=== PATIENT | female | born 1980 | race Caucasian/White ===

== ENCOUNTER → 2018-08-04 | Outpatient (CLI) | payer BC | LOC: LAB 10:44 | PROVIDERS: ATTEND Nurse Practitioner | DX: N97.0 Female infertility associated with anovulation (principal) ==

== ENCOUNTER → 2018-09-04 | Outpatient (CLI) | payer BC | LOC: LAB 12:56 | PROVIDERS: ATTEND Nurse Practitioner | DX: N97.0 Female infertility associated with anovulation (principal) | CPT/HCPCS: 36415; 84144 ==

== ENCOUNTER → 2021-11-14 | Outpatient (CLI) | payer OTHER | LOC: LAB FS 07:17 | DX: E55.9 Vitamin D deficiency, unspecified (principal); E66.9 Obesity, unspecified; Z86.39 Personal history of other endocrine, nutritional and metabolic disease | CPT/HCPCS: 36415; 80061; 82306; 83036; 84443; 84681 ==

== ENCOUNTER → 2022-06-07 | Outpatient (CLI) | payer OTHER ==
[~2022-06-07] MED LIST: IRON DEXTRAN 1,000 MG/NS 250 ML IVPB IV ONE; IRON DEXTRAN 25 MG/NS 6.25 ML TOTAL VOLUME IV ONE
[2022-06-07 08:35] VITALS: BP 119/83
== END ==
LOC: SDC 08:19
PROVIDERS: ATTEND Nurse Practitioner
DX: D50.9 Iron deficiency anemia, unspecified (principal)
CPT/HCPCS: 96365

== ENCOUNTER → 2022-11-14 | Outpatient (CLI) | payer OTHER | LOC: LAB FS 10:19 | PROVIDERS: ATTEND Obstetrics & Gynecology | DX: N83.209 Unspecified ovarian cyst, unspecified side (principal); R19.09 Other intra-abdominal and pelvic swelling, mass and lump | CPT/HCPCS: 36415; 86304 ==

== ENCOUNTER → 2023-02-06 | Outpatient (CLI) | payer OTHER ==
[2023-02-06 08:42] LABS: CREATININE SERUM 0.73 MG/DL (0.60-1.30); POTASSIUM 4.1 MMOL/L (3.6-5.0)
[2023-02-06 08:43] LABS: BILIRUBIN,TOTAL 0.4 MG/DL (0.1-1.0); CALCIUM 9.2 MG/DL (8.5-10.1); TOTAL PROTEIN 6.5 GM/DL (6.4-8.2)
== END ==
LOC: LAB FS 07:27
PROVIDERS: ATTEND Registered Nurse
DX: I10 Essential (primary) hypertension (principal)
CPT/HCPCS: 36415; 80053; 80061; 82728; 83036; 83525

== ENCOUNTER 2023-03-15 01:11 | Inpatient (IN) | payer OTHER ==
[~2023-03-15] VITALS: Ht 162.6 cm; Wt 65.8 kg
[2023-03-15 01:43] LABS: BASOPHILS % (AUTO) 1 % (0-10); EOSINOPHILS # (AUTO) 0.2 10^3/uL (0.0-0.3); EOSINOPHILS % (AUTO) 2 % (0-10); HEMATOCRIT 43 % (35-52); HEMOGLOBIN 14.4 g/dL (11.5-16.0); LYMPHOCYTES # (AUTO) 3.2 10^3/uL (1.0-4.0); LYMPHOCYTES % (AUTO) 45 % (12-44); MEAN CORPUSCULAR HEMOGLOBIN 29 pg (25-34); MEAN CORPUSCULAR HGB CONC 34 g/dL (32-36); MEAN CORPUSCULAR VOLUME 86 fL (80-99); MEAN PLATELET VOLUME 10.2 fL (9.0-12.2); MONOCYTES # (AUTO) 0.4 10^3/uL (0.0-1.0); MONOCYTES % (AUTO) 6 % (0-12); NEUTROPHILS # (AUTO) 3.2 10^3/uL (1.8-7.8); NEUTROPHILS % (AUTO) 46 % (42-75); PLATELET COUNT 251 10^3/uL (130-400)
[2023-03-15 01:48] LABS: ALBUMIN 4.6 GM/DL (3.2-4.5); CHLORIDE 104 MMOL/L (98-107); POTASSIUM 3.6 MMOL/L (3.6-5.0); SODIUM 140 MMOL/L (135-145)
[2023-03-15 01:49] LABS: AMYLASE 72 U/L (25-125); CALCIUM 9.9 MG/DL (8.5-10.1)
[2023-03-15 01:50] LABS: GLUCOSE 90 MG/DL (70-105); TOTAL PROTEIN 7.6 GM/DL (6.4-8.2)
[2023-03-15 01:51] LABS: CARBON DIOXIDE 25 MMOL/L (21-32)
[2023-03-15 01:52] LABS: BILIRUBIN,TOTAL 0.6 MG/DL (0.1-1.0)
[2023-03-15 01:54] LABS: ALKALINE PHOSPHATASE 82 U/L (40-136); CREATININE SERUM 0.82 MG/DL (0.60-1.30); GFR ESTIMATED 90
[2023-03-15 01:55] LABS: BUN/CREATININE RATIO 20
[2023-03-15 01:57] LABS: ALANINE AMINOTRANSFERASE 29 U/L (0-55); LIPASE 24 U/L (8-78)
[2023-03-15] MEDS ORDERED: KETOROLAC 30 MG/ML VIAL IVP STA (02:01)
[2023-03-15 02:11] LABS: ERYTHROCYTE SEDIMENTATION RATE 5 MM/HR (0-20)
[2023-03-15] MEDS ORDERED: LACTATED RINGERS 1,000 ML IV ONE (02:15)
[2023-03-15] MEDS ORDERED: ONDANSETRON 4 MG/2 ML (SDV) Z0FRAN IVP ONE (02:15)
[2023-03-15 02:33] LABS: BILIRUBIN,URINE NEGATIVE (NEGATIVE); CLARITY,URINE CLEAR; COLOR,URINE YELLOW; GLUCOSE, URINE (UA) NEGATIVE (NEGATIVE); KETONES,URINE NEGATIVE (NEGATIVE); LEUKOCYTE ESTERASE ,URINE NEGATIVE (NEGATIVE); NITRITE,URINE NEGATIVE (NEGATIVE); PROTEIN,URINE NEGATIVE (NEGATIVE)
[2023-03-15] MEDS ORDERED: HOLD METFORMIN - RECEIVED CONTRAST 20 ML VIAL IV SCH (02:45)
[2023-03-15] MEDS ORDERED: CATHETER FLUSH 10 ML SYR IV PRN (02:45)
[2023-03-15] MEDS ORDERED: NS 100 ML (IVPB) BAG IV ONE (02:45)
[2023-03-15] MEDS ORDERED: IOHEXOL 350 MG/ML 100 ML (OMNIPAQUE 350) VIAL IV ONE (02:45)
[2023-03-15 02:47] LABS: BACTERIA,URINE NEGATIVE /HPF
[2023-03-15] MEDS ORDERED: fentaNYL INJ 100 MCG/2 ML AMP IVP STA (03:17)
[2023-03-15 04:53] VITALS: BP 151/90
[2023-03-15] MEDS ORDERED: ONDANSETRON 4 MG/2 ML (SDV) Z0FRAN IVP PRN (05:30)
[2023-03-15] MEDS ORDERED: fentaNYL INJ 100 MCG/2 ML AMP IVP PRN (05:30)
[2023-03-15] MEDS ORDERED: D5 1/2NS + KCL 20 MEQ/L 1000ML 1,000 ML IV SCH (05:30)
[2023-03-15] MEDS: ONDANSETRON 4 MG/2 ML (SDV) Z0FRAN IV PRN ×3 (05:49→20:28)
[2023-03-15] MEDS: fentaNYL INJ 100 MCG/2 ML AMP IV PRN ×5 (05:49→20:28)
[2023-03-15] MEDS: D5 1/2NS + KCL 20 MEQ/L 1000ML 1,000 ML IV SCH ×4 (05:49→21:44)
[2023-03-15 05:57] LABS: BASOPHILS % (AUTO) 0 % (0-10); EOSINOPHILS # (AUTO) 0.1 10^3/uL (0.0-0.3); EOSINOPHILS % (AUTO) 1 % (0-10); HEMATOCRIT 37 % (35-52); HEMOGLOBIN 12.5 g/dL (11.5-16.0); LYMPHOCYTES # (AUTO) 2.1 10^3/uL (1.0-4.0); LYMPHOCYTES % (AUTO) 27 % (12-44); MEAN CORPUSCULAR HEMOGLOBIN 29 pg (25-34); MEAN CORPUSCULAR HGB CONC 34 g/dL (32-36); MEAN CORPUSCULAR VOLUME 86 fL (80-99); MEAN PLATELET VOLUME 10.4 fL (9.0-12.2); MONOCYTES # (AUTO) 0.5 10^3/uL (0.0-1.0); MONOCYTES % (AUTO) 6 % (0-12); NEUTROPHILS # (AUTO) 5.3 10^3/uL (1.8-7.8); NEUTROPHILS % (AUTO) 66 % (42-75); PLATELET COUNT 196 10^3/uL (130-400); WHITE BLOOD COUNT 8.1 10^3/uL (4.3-11.0)
[2023-03-15 06:05] LABS: ALBUMIN 3.9 GM/DL (3.2-4.5); POTASSIUM 3.7 MMOL/L (3.6-5.0)
[2023-03-15 06:06] LABS: CALCIUM 8.8 MG/DL (8.5-10.1)
[2023-03-15 06:08] LABS: TOTAL PROTEIN 6.3 GM/DL (6.4-8.2)
[2023-03-15 06:09] LABS: BILIRUBIN,TOTAL 0.6 MG/DL (0.1-1.0)
[2023-03-15 06:11] LABS: CREATININE SERUM 0.76 MG/DL (0.60-1.30)
--- NOTE | 2023-03-15 07:30 | Diagnostic Imaging Report ---
PROCEDURE: CT abdomen and pelvis with contrast, rule out appendicitis. TECHNIQUE: Multiple contiguous axial images were obtained through the abdomen and pelvis after the administration of intravenous contrast. All CT scans use one or more of the following dose optimizing techniques: automated exposure control, MA and/or KvP adjustment based on patient size and exam type or iterative reconstruction. INDICATION: Right lower quadrant abdominal pain Lung bases are clear. Liver appears normal. Gallbladder surgically absent. There are postoperative changes from gastric bypass surgery. Proximal small bowel loops are markedly dilated measuring up to 4.6 cm in diameter. The distal small bowel is decompressed. Colon is unremarkable. Kidneys and adrenals are normal. Pancreas is normal. There is no intraperitoneal free air. There is a small amount of free fluid in the cul-de-sac. There is an IUD in the uterus. Urinary bladder appears normal. IMPRESSION: Mid to distal high-grade small bowel obstruction. Postoperative changes from gastric bypass surgery and cholecystectomy. I agree with preliminary interpretation. Dictated by: Dictated on workstation # [id number]
[2023-03-15 08:07] VITALS: BP 144/85
[2023-03-15] MEDS: PANTOPRAZOLE 40 MG (PROTONIX) VIAL IV SCH (08:54)
[2023-03-15] MEDS ORDERED: PANTOPRAZOLE 40 MG (PROTONIX) VIAL IV SCH (09:00)
--- NOTE | 2023-03-15 09:53 | Consultation - Surgery ---
History of Present Illness History of Present Illness Patient Consulted On(marguerite/time) 03/15/23 09:52 Date Seen by Provider: Mar 15, 2023 Time Seen by Provider: 09:53 History of Present Illness 42 year old female with history of gastric bypass. Had in 2016 and lost about 145 pounds. Has been doing well. Was eating chicken yesterday. Having abdominal pain and nausea and emesis. Crampy type pain. After emesis stomach feeling a little better. Yesterday last bowel movement. Patient Had ct scan with Mid to distal high-grade small bowel obstruction. Postoperative changes from gastric bypass surgery and cholecystectomy. Allergies and Home Medications Allergies Coded Allergies: Penicillins (Verified Allergy, Unknown, 06/07/22) TOLD CHILD NOT TO TAKE IT, BUT DOES NO KNOW REACTION. HAS TAKEN AUGMENTIN IN PAST Patient Home Medication List Home Medication List Reviewed: Yes Bupropion HCl (Bupropion HCl) 100 Mg Tablet, 200 MG PO DAILY, (Reported) Entered as Reported by: KT DODSON on 03/15/231307 Last Action: Reviewed Cholecalciferol (Vitamin D3) (Vitamin D3) 50 Mcg (2000 Unit) Tablet, 50 MCG PO DAILY, (Reported) Entered as Reported by: KT DODSON on 03/15/231307 Last Action: Reviewed Magnesium Oxide (Magnesium) 400 Mg Magnesium Tablet, 400 MG PO DAILY, (Reported) Entered as Reported by: KT DODSON on 03/15/231307 Last Action: Reviewed Multivitamin (Multivitamin) 1 Each Tablet, 1 EACH PO DAILY, (Reported) Entered as Reported by: KT DODSON on 03/15/231307 Last Action: Reviewed Nifedipine (Nifedipine ER) 60 Mg Tab.er.24, 60 MG PO DAILY, (Reported) Entered as Reported by: KT DODSON on 03/15/231307 Last Action: Reviewed Trazodone HCl (Trazodone HCl) 50 Mg Tablet, 50 MG PO HS PRN for SLEEP, (Reported) Entered as Reported by: KT DODSON on 03/15/231307 Last Action: Reviewed cycloSPORINE (cycloSPORINE) 0.05 % [place]pe[place], 1 DROP OU BID, (Reported) Entered as Reported by: KT DODSON on 03/15/231307 Last Action: Reviewed Past Bofbfso-Ftptoe-Umxuew Hx Patient Social History Smoking Status: Never a Smoker Alcohol Use?: No Surgeries History of Surgeries: Yes (gastric bypass) Respiratory History of Respiratory Disorde: No Cardiovascular History of Cardiac Disorders: No Neurological History of Neurological Disord: No Genitourinary History of Genitourinary Disor: No Gastrointestinal History of Gastrointestinal Di: No Musculoskeletal History of Musculoskeletal Dis: No Endocrine History of Endocrine Disorders: No Cancer History of Cancer: No Psychosocial History of Psychiatric Problem: No Reviewed Nursing Assessment Reviewed/Agree w Nursing PMH: Yes Family Medical History Significant Family History: No Pertinent Family Hx Review of Systems-General Constitutional: No chills, No diaphoresis EENTM: No blurred vision, No double vision Respiratory: No cough, No dyspnea on exertion Cardiovascular: No chest pain, No palpitations Gastrointestinal: abdominal pain, nausea, vomiting Genitourinary: No decreased output, No discharge Musculoskeletal: No back pain, No joint pain Skin: No change in color, No change in hair/nails Psychiatric/Neurological: Denies Anxiety, Denies Depressed, Denies Emotional Problems All Other Systems Reviewed Negative Unless Noted: Yes (Negative excepted noted.) Physical Exam-General Problems Physical Exam Vital Signs Vital Signs - First Documented 03/15/23 01:20 Temp 36.3 Pulse 87 Resp 18 B/P (MAP) 147/95 (112) Pulse Ox 99 O2 Delivery Room Air Capillary Refill : Less Than 3 Seconds General Appearance: no apparent distress (but uncomfortable), thin HEENT: PERRL/EOMI, normal ENT inspection Neck: non-tender, supple Respiratory: chest non-tender Cardiovascular: regular rate, rhythm, no JVD Gastrointestinal: soft, tenderness (lower abdomen) Rectal: deferred Back: no CVA tenderness, no vertebral tenderness Extremities: non-tender, normal inspection Neurologic/Psychiatric: alert, normal mood/affect, oriented x 3 Skin: normal color, warm/dry Lymphatic: no adenopathy Data Review Labs Laboratory Tests 03/15/23 01:26: White Blood Count 7.0, Red Blood Count 4.93, Hemoglobin 14.4, Hematocrit 43, Mean Corpuscular Volume 86, Mean Corpuscular Hemoglobin 29, Mean Corpuscular Hemoglobin Concent 34, Red Cell Distribution Width 12.6, Platelet Count 251, Mean Platelet Volume 10.2, Immature Granulocyte % (Auto) 0, Neutrophils (%) (Auto) 46, Lymphocytes (%) (Auto) 45H, Monocytes (%) (Auto) 6, Eosinophils (%) (Auto) 2, Basophils (%) (Auto) 1, Neutrophils # (Auto) 3.2, Lymphocytes # (Auto) 3.2, Monocytes # (Auto) 0.4, Eosinophils # (Auto) 0.2, Basophils # (Auto) 0.0, Immature Granulocyte # (Auto) 0.0, Erythrocyte Sedimentation Rate 5, Sodium Level 140, Potassium Level 3.6, Chloride Level 104, Carbon Dioxide Level 25, Anion Gap 11, Blood Urea Nitrogen 16, Creatinine 0.82, Estimat Glomerular Filtration Rate 90, BUN/Creatinine Ratio 20, Glucose Level 90, Calcium Level 9.9, Corrected Calcium , Total Bilirubin 0.6, Aspartate Amino Transf (AST/SGOT) 21, Alanine Aminotransferase (ALT/SGPT) 29, Alkaline Phosphatase 82, C-Reactive Protein High Sensitivity 0.02, Total Protein 7.6, Albumin 4.6H, Amylase Level 72, Lipase 24, Serum Test, Qualitative NEGATIVE 03/15/23 02:26: Urine Color YELLOW, Urine Clarity CLEAR, Urine pH 7.0, Urine Specific [place] 1. 010L, Urine Protein NEGATIVE, Urine Glucose (UA) NEGATIVE, Urine Ketones NEGATIVE, Urine Nitrite NEGATIVE, Urine Bilirubin NEGATIVE, Urine Urobilinogen 0.2, Urine Leukocyte Esterase NEGATIVE, Urine RBC (Auto) NEGATIVE, Urine RBC NONE, Urine WBC NONE, Urine Crystals NONE, Urine Bacteria NEGATIVE, Urine Casts NONE, Urine Mucus NEGATIVE, Urine Culture Indicated NO 03/15/23 05:50: White Blood Count 8.1, Red Blood Count 4.28, Hemoglobin 12.5, Hematocrit 37, Mean Corpuscular Volume 86, Mean Corpuscular Hemoglobin 29, Mean Corpuscular Hemoglobin Concent 34, Red Cell Distribution Width 12.5, Platelet Count 196, Mean Platelet Volume 10.4, Immature Granulocyte % (Auto) 0, Neutrophils (%) (Auto) 66, Lymphocytes (%) (Auto) 27, Monocytes (%) (Auto) 6, Eosinophils (%) (Auto) 1, Basophils (%) (Auto) 0, Neutrophils # (Auto) 5.3, Lymphocytes # (Auto) 2.1, Monocytes # (Auto) 0.5, Eosinophils # (Auto) 0.1, Basophils # (Auto) 0.0, Immature Granulocyte # (Auto) 0.0, Sodium Level 138, Potassium Level 3.7, Chloride Level 105, Carbon Dioxide Level 26, Anion Gap 7, Blood Urea Nitrogen 14, Creatinine 0.76, Estimat Glomerular Filtration Rate 99, BUN/Creatinine Ratio 18, Glucose Level 84, Calcium Level 8.8, Corrected Calcium 8.9, Total Bilirubin 0.6, Aspartate Amino Transf (AST/SGOT) 17, Alanine Aminotransferase (ALT/SGPT) 23, Alkaline Phosphatase 70, Total Protein 6.3L, Albumin 3.9 Assessment/Plan Assessment/Plan Assessment/Plan small bowel obstruction history of gastric bypass npo place ng tube reviewed ct scan consistent with sbo get small bowel follow through in am labs normal discussed conservative and operative management will continue with conservative and if changes or depending on results of small bowel follow through will adjust plan accordingly. EDVIN AMADO DO Mar 15, 2023 09:53
--- NOTE | 2023-03-15 11:42 | Diagnostic Imaging Report ---
EXAMINATION: Chest, one view. HISTORY: NG tube placement. Small bowel obstruction. COMPARISON: None available. FINDINGS: Enteric tube is visualized with the tip descending below the diaphragm overlying the stomach. The lung volumes are normal. No focal consolidation is seen. No large pleural effusion or pneumothorax is seen. The cardiomediastinal silhouette is normal in size and contour. No acute osseous abnormality is seen. IMPRESSION: 1. No acute pleural-parenchymal process. 2. Enteric tube with the tip overlying the stomach. Dictated by: Dictated on workstation # [id number]
[2023-03-15 11:52] VITALS: BP 149/109
[2023-03-15] MEDS ORDERED: LORazepam INJ 2 MG/ML (ATIVAN) VIAL IVP NR (12:00)
[2023-03-15] MEDS ORDERED: BUPR100T15 PO (13:08)
[2023-03-15] MEDS ORDERED: NIFE-24 PO (13:08)
[2023-03-15] MEDS ORDERED: TRZ50T PO (13:08)
[2023-03-15] MEDS ORDERED: MULT-1136 PO (13:08)
[2023-03-15] MEDS ORDERED: CYCL1DRO18 OU (13:08)
[2023-03-15] MEDS ORDERED: MAGN400T39 PO (13:08)
[2023-03-15] MEDS ORDERED: CHOL200059 PO (13:08)
--- NOTE | 2023-03-15 14:28 | History & Physical ---
History of Present Illness HPI/Chief Complaint CC: Abdominal pain HPI: This is a 42yoWF clinic patient of [facility] who presented to the ER with abdominal pain and was found to have an SBO. She does have a h/o gastric bypass 2016 and has never had an SBO. NGT was placed and will provide supportive care and NPO. BP has been elevated so will monitor closely. Source: patient Date Seen 03/15/23 Time Seen by a Provider: 16:00 Attending Physician No,Local Physician PCP Admitting Physician: Chris Payne DO Attending Physician: Chris Payne DO Referring Physician Date of Admission Mar 15, 2023 at 04:40 Home Medications & Allergies Home Medications Reviewed patient Home Medication Reconciliation performed by pharmacy medication reconciliations furniture repair technician and/or nursing. Patients Allergies have been reviewed. Allergies Allergies Coded Allergies Penicillins (Verified Allergy, Unknown, 06/07/22) TOLD CHILD NOT TO TAKE IT, BUT DOES NO KNOW REACTION. HAS TAKEN AUGMENTIN IN PAST Past Ohzkfrx-Lukmym-Tvtbzq Hx Past Med/Social Hx: Reviewed Nursing Past Med/Soc Hx, Reviewed and Corrections made Patient Social History Marrital Status: Employed/Student: employed Alcohol Use: Denies Use Smoking Status: Never a Smoker Past Medical History Surgeries: Abdominal, Gallbladder Psychosocial: Depression Review of Systems Constitutional: see HPI Gastrointestinal: abdominal pain, loss of appetite, nausea, vomiting Physical Exam Physical Exam Vital Signs Vital Signs - First Documented 03/15/23 01:20 Temp 36.3 Pulse 87 Resp 18 B/P (MAP) 147/95 (112) Pulse Ox 99 O2 Delivery Room Air Capillary Refill : Less Than 3 Seconds Height, Weight, BMI Height: '" Weight: lbs. oz. kg; 24.88 BMI Method: General Appearance: No Apparent Distress, WD/WN, Anxious Eyes: Bilateral Eye Normal Inspection, Bilateral Eye PERRL HEENT: PERRL/EOMI, Normal ENT Inspection, Pharynx Normal Neck: Full Range of Motion, Normal Inspection, Non Tender, Supple, Carotid Bruit Respiratory: Chest Non Tender, Lungs Clear, Normal Breath Sounds, No Accessory Muscle Use, No Respiratory Distress Cardiovascular: Regular Rate, Rhythm, No Edema, No Gallop, No JVD, No Murmur, Normal Peripheral Pulses Gastrointestinal: No Organomegaly, No Pulsatile Mass, Abnormal Bowel Sounds, Distended, Tenderness Back: Normal Inspection, No CVA Tenderness, No Vertebral Tenderness Extremity: Normal Capillary Refill, Normal Inspection, Normal Range of Motion, Non Tender, No Calf Tenderness, No Pedal Edema Neurologic/Psychiatric: Alert, Oriented x3, No Motor/Sensory Deficits, Normal Mood/Affect Skin: Normal Color, Warm/Dry Lymphatic: No Adenopathy Results Results/Procedures Labs Laboratory Tests 03/15/23 01:26 03/15/23 05:50 03/16/23 05:15 Patient resulted labs reviewed. Assessment/Plan Admission Diagnosis Assessment: SBO h/o gastric bypass 2016 Elevated BP Depression Plan: NGT IVF Pain control BP management Admission Status: Inpatient Order (span 2 midnights) Reason for Inpatient Admission: SBO Diagnosis/Problems Diagnosis/Problems (1) Small bowel obstruction LINUS OCLINDRES DO Mar 15, 2023 14:28
[2023-03-15] MEDS ORDERED: hydrALAZINE (APESOLINE) 20 MG/ML VIAL IV PRN (14:30)
[2023-03-15] MEDS ORDERED: NITROGLYCERIN 2% OINT 1 GM UNIT DOSE PACKET TOP PRN (14:30)
[2023-03-15 15:41] VITALS: BP 127/86
[2023-03-15] MEDS ORDERED: CHLORASEPTIC SPRAY 177 ML LIQUID MC PRN (17:15)
[2023-03-15 20:20] VITALS: BP 129/84
[2023-03-16] MEDS: fentaNYL INJ 100 MCG/2 ML AMP IV PRN ×3 (00:28→10:24)
[2023-03-16 00:39] VITALS: BP 114/84
[2023-03-16] MEDS: D5 1/2NS + KCL 20 MEQ/L 1000ML 1,000 ML IV SCH ×2 (02:38→07:49)
[2023-03-16 04:30] VITALS: BP 147/96
[2023-03-16 05:31] LABS: BASOPHILS % (AUTO) 0 % (0-10); EOSINOPHILS # (AUTO) 0.1 10^3/uL (0.0-0.3); EOSINOPHILS % (AUTO) 1 % (0-10); HEMATOCRIT 33 % (35-52); HEMOGLOBIN 10.8 g/dL (11.5-16.0); LYMPHOCYTES % (AUTO) 32 % (12-44); MEAN CORPUSCULAR HEMOGLOBIN 29 pg (25-34); MEAN CORPUSCULAR HGB CONC 33 g/dL (32-36); MEAN CORPUSCULAR VOLUME 87 fL (80-99); MEAN PLATELET VOLUME 10.6 fL (9.0-12.2); MONOCYTES # (AUTO) 0.5 10^3/uL (0.0-1.0); MONOCYTES % (AUTO) 8 % (0-12); NEUTROPHILS # (AUTO) 3.6 10^3/uL (1.8-7.8); NEUTROPHILS % (AUTO) 59 % (42-75); PLATELET COUNT 172 10^3/uL (130-400); WHITE BLOOD COUNT 6.2 10^3/uL (4.3-11.0)
[2023-03-16 05:39] LABS: ALBUMIN 3.1 GM/DL (3.2-4.5)
[2023-03-16 05:43] LABS: BILIRUBIN,TOTAL 0.6 MG/DL (0.1-1.0)
[2023-03-16 05:45] LABS: CREATININE SERUM 0.67 MG/DL (0.60-1.30)
[2023-03-16] MEDS: PANTOPRAZOLE 40 MG (PROTONIX) VIAL IV SCH (08:14)
[2023-03-16 08:37] VITALS: BP 151/92
[2023-03-16] MEDS ORDERED: DIATRIZOATE MEGLUM/SODIUM 37% 120 ML (GASTROGRAFIN) NG ONE (09:00)
--- NOTE | 2023-03-16 09:11 | Progress Note - Surgery ---
Subjective Date Seen by a Provider: Mar 16, 2023 Time Seen by a Provider: 09:11 Subjective/Events-last exam Feeling a little better today. No bowel function. Ng tube in place. NPO. Denies fever. Pain improved some. Denies n/v fever sweats chills shortness of breath or chest pain. Objective Exam Vital Signs Date Time Temp Pulse Resp B/P (MAP) Pulse Ox O2 Delivery O2 Flow Rate FiO2 03/16/23 08:37 36.6 74 18 151/92 (111) 98 Room Air 03/16/23 07:00 66 03/16/23 04:30 36.6 67 16 147/96 (113) 98 Room Air 03/16/23 01:00 63 03/16/23 00:39 36.5 68 18 114/84 (94) 97 Room Air 03/15/23 20:20 36.9 75 17 129/84 (99) 98 Room Air 03/15/23 20:00 Room Air 03/15/23 19:00 70 03/15/23 15:41 36.4 71 18 127/86 (100) 97 Room Air 03/15/23 13:00 65 03/15/23 11:52 36.6 82 18 149/109 (122) 98 Room Air I & O 03/16/23 07:00 Intake Total 0 ml Output Total 1375 ml Balance -1375 ml Capillary Refill : Less Than 3 Seconds General Appearance: No Apparent Distress, Thin (ng tube) HEENT: PERRL/EOMI, Normal ENT Inspection Neck: Full Range of Motion, Normal Inspection Respiratory: Chest Non Tender, No Accessory Muscle Use (xc) Cardiovascular: Regular Rate, Rhythm, No JVD Gastrointestinal: soft, tenderness (lower abdomen) Neurologic/Psychiatric: Alert, Oriented x3 Skin: Normal Color, Warm/Dry Lymphatic: No Adenopathy Results Lab Laboratory Tests 03/16/23 05:15: White Blood Count 6.2, Red Blood Count 3.75L, Hemoglobin 10.8L, Hematocrit 33L, Mean Corpuscular Volume 87, Mean Corpuscular Hemoglobin 29, Mean Corpuscular H emoglobin Concent 33, Red Cell Distribution Width 12.7, Platelet Count 172, Mean Platelet Volume 10.6, Immature Granulocyte % (Auto) 0, Neutrophils (%) (Auto) 59, Lymphocytes (%) (Auto) 32, Monocytes (%) (Auto) 8, Eosinophils (%) (Auto) 1, Basophils (%) (Auto) 0, Neutrophils # (Auto) 3.6, Lymphocytes # (Auto) 2.0, Monocytes # (Auto) 0.5, Eosinophils # (Auto) 0.1, Basophils # (Auto) 0.0, Immature Granulocyte # (Auto) 0.0, Sodium Level 136, Potassium Level 4.0, Chloride Level 108H, Carbon Dioxide Level 23, Anion Gap 5, Blood Urea Nitrogen 8, Creatinine 0.67, Estimat Glomerular Filtration Rate 110, BUN/Creatinine Ratio 12, Glucose Level 106H, Calcium Level 8.0L, Corrected Calcium 8.7, Total Bilirubin 0.6, Aspartate Amino Transf (AST/SGOT) 18, Alanine Aminotransferase (ALT/SGPT) 22, Alkaline Phosphatase 62, Total Protein 5.0L, Albumin 3.1L Assessment/Plan Assessment/Plan Assessment/Plan small bowel obstruction history of gastric bypass npo ng tube to liws reviewed ct scan consistent with sbo get small bowel follow through this labs normal discussed conservative and operative management will continue with conservative and if changes or depending on results of small bowel follow through will adjust plan accordingly.am EDVIN AMADO DO Mar 16, 2023 09:11
[2023-03-16] MEDS: ONDANSETRON 4 MG/2 ML (SDV) Z0FRAN IV PRN (10:24)
--- NOTE | 2023-03-16 10:52 | Diagnostic Imaging Report ---
EXAM: Small bowel follow-through EXAM DATE: 03/16/2023 COMPARISON: None HISTORY: Small bowel obstruction. TECHNIQUE: Multiple radiographic images of the abdomen were obtained after the administration of Gastrografin contrast through patient's NG tube. FINDINGS: Lineman Apprentice images demonstrate a nonobstructive bowel gas pattern. Enteric catheter projects over the left upper quadrant. Immediate images demonstrate contrast within the stomach and proximal and mid small bowel. By 15 minutes, contrast does pass into the distal small bowel. By 30 minutes, contrast is seen throughout the colon and rectum. No evidence of bowel obstruction. IMPRESSION: Normal small bowel transit without evidence of obstruction. Dictated by: Dictated on workstation # [id number]
[2023-03-16 11:45] VITALS: BP 161/89
--- NOTE | 2023-03-16 12:22 | Progress Note ---
Subjective Date Seen by a Provider: Mar 16, 2023 Time Seen by a Provider: 12:30 Objective Exam Last Set of Vital Signs Vital Signs Date Time Temp Pulse Resp B/P (MAP) Pulse Ox O2 Delivery O2 Flow Rate FiO2 03/16/23 11:45 36.7 68 18 161/89 (113) 98 Room Air Capillary Refill : Less Than 3 Seconds I&O Intake and Output 03/16/23 00:00 Intake Total 1000 ml Output Total 675 ml Balance 325 ml Intake Oral 0 ml IV Total 1000 ml Output Urine Total 600 ml Gastric Drainage Total 75 ml # Voids 4 # Emeses 2 Daily Weight Change No Results Lab Laboratory Tests 03/16/23 05:15: White Blood Count 6.2, Red Blood Count 3.75L, Hemoglobin 10.8L, Hematocrit 33L, Mean Corpuscular Volume 87, Mean Corpuscular Hemoglobin 29, Mean Corpuscular H emoglobin Concent 33, Red Cell Distribution Width 12.7, Platelet Count 172, Mean Platelet Volume 10.6, Immature Granulocyte % (Auto) 0, Neutrophils (%) (Auto) 59, Lymphocytes (%) (Auto) 32, Monocytes (%) (Auto) 8, Eosinophils (%) (Auto) 1, Basophils (%) (Auto) 0, Neutrophils # (Auto) 3.6, Lymphocytes # (Auto) 2.0, Monocytes # (Auto) 0.5, Eosinophils # (Auto) 0.1, Basophils # (Auto) 0.0, Immature Granulocyte # (Auto) 0.0, Sodium Level 136, Potassium Level 4.0, Chloride Level 108H, Carbon Dioxide Level 23, Anion Gap 5, Blood Urea Nitrogen 8, Creatinine 0.67, Estimat Glomerular Filtration Rate 110, BUN/Creatinine Ratio 12, Glucose Level 106H, Calcium Level 8.0L, Corrected Calcium 8.7, Total Bilirubin 0.6, Aspartate Amino Transf (AST/SGOT) 18, Alanine Aminotransferase (ALT/SGPT) 22, Alkaline Phosphatase 62, Total Protein 5.0L, Albumin 3.1L LINUS COLINDRES DO Mar 16, 2023 12:22
[2023-03-16] MEDS ORDERED: traZODone 50 MG (DESYREL) TAB PO PRN (12:30)
--- NOTE | 2023-03-16 12:35 | Discharge Summary ---
Diagnosis/Chief Complaint Date of Admission Mar 15, 2023 at 04:40 Date of Discharge Discharge Date: Mar 16, 2023 Discharge Diagnosis SBO h/o gastric bypass 2016 Depression Discharge Summary Discharge Physical Examination Allergies: Coded Allergies: Penicillins (Verified Allergy, Unknown, 06/07/22) TOLD CHILD NOT TO TAKE IT, BUT DOES NO KNOW REACTION. HAS TAKEN AUGMENTIN IN PAST Vitals & I&Os Vital Signs Date Time Temp Pulse Resp B/P (MAP) Pulse Ox O2 Delivery O2 Flow Rate FiO2 03/16/23 12:26 70 03/16/23 11:45 36.7 18 161/89 (113) 98 Room Air General Appearance: Alert, Oriented X3, Cooperative Psych/Mental Status: Mental Status NL Hospital Course Was the Problem List Reviewed?: Yes Uneventful course after she was admitted for SBO and required NGT. Small bowel follow thru revealed open GI tract and she had large BM so she was able to tolerate CLD and was DC. Labs (last 24 hrs) Laboratory Tests 03/15/23 01:26: White Blood Count 7.0, Red Blood Count 4.93, Hemoglobin 14.4, Hematocrit 43, Mean Corpuscular Volume 86, Mean Corpuscular Hemoglobin 29, Mean Corpuscular Hemoglobin Concent 34, Red Cell Distribution Width 12.6, Platelet Count 251, Mean Platelet Volume 10.2, Immature Granulocyte % (Auto) 0, Neutrophils (%) (Auto) 46, Lymphocytes (%) (Auto) 45H, Monocytes (%) (Auto) 6, Eosinophils (%) (Auto) 2, Basophils (%) (Auto) 1, Neutrophils # (Auto) 3.2, Lymphocytes # (Auto) 3.2, Monocytes # (Auto) 0.4, Eosinophils # (Auto) 0.2, Basophils # (Auto) 0.0, Immature Granulocyte # (Auto) 0.0, Erythrocyte Sedimentation Rate 5, Sodium Level 140, Potassium Level 3.6, Chloride Level 104, Carbon Dioxide Level 25, Anion Gap 11, Blood Urea Nitrogen 16, Creatinine 0.82, Estimat Glomerular Filtration Rate 90, BUN/Creatinine Ratio 20, Glucose Level 90, Calcium Level 9.9, Corrected Calcium , Total Bilirubin 0.6, Aspartate Amino Transf (AST/SGOT) 21, Alanine Aminotransferase (ALT/SGPT) 29, Alkaline Phosphatase 82, C-Reactive Protein High Sensitivity 0.02, Total Protein 7.6, Albumin 4.6H, Amylase Level 72, Lipase 24, Serum Test, Qualitative NEGATIVE 03/15/23 02:26: Urine Color YELLOW, Urine Clarity CLEAR, Urine pH 7.0, Urine Specific [place] 1.010L, Urine Protein NEGATIVE, Urine Glucose (UA) NEGATIVE, Urine Ketones NEGATIVE, Urine Nitrite NEGATIVE, Urine Bilirubin NEGATIVE, Urine Urobilinogen 0.2, Urine Leukocyte Esterase NEGATIVE, Urine RBC (Auto) NEGATIVE, Urine RBC NONE, Urine WBC NONE, Urine Crystals NONE, Urine Bacteria NEGATIVE, Urine Casts NONE, Urine Mucus NEGATIVE, Urine Culture Indicated NO 03/15/23 05:50: White Blood Count 8.1, Red Blood Count 4.28, Hemoglobin 12.5, Hematocrit 37, Mean Corpuscular Volume 86, Mean Corpuscular Hemoglobin 29, Mean Corpuscular Hemoglobin Concent 34, Red Cell Distribution Width 12.5, Platelet Count 196, Mean Platelet Volume 10.4, Immature Granulocyte % (Auto) 0, Neutrophils (%) (Auto) 66, Lymphocytes (%) (Auto) 27, Monocytes (%) (Auto) 6, Eosinophils (%) (Auto) 1, Basophils (%) (Auto) 0, Neutrophils # (Auto) 5.3, Lymphocytes # (Auto) 2.1, Monocytes # (Auto) 0.5, Eosinophils # (Auto) 0.1, Basophils # (Auto) 0.0, Immature Granulocyte # (Auto) 0.0, Sodium Level 138, Potassium Level 3.7, Chloride Level 105, Carbon Dioxide Level 26, Anion Gap 7, Blood Urea Nitrogen 14, Creatinine 0.76, Estimat Glomerular Filtration Rate 99, BUN/Creatinine Ratio 18, Glucose Level 84, Calcium Level 8.8, Corrected Calcium 8.9, Total Bilirubin 0.6, Aspartate Amino Transf (AST/SGOT) 17, Alanine Aminotransferase (ALT/SGPT) 23, Alkaline Phosphatase 70, Total Protein 6.3L, Albumin 3.9 03/16/23 05:15: White Blood Count 6.2, Red Blood Count 3.75L, Hemoglobin 10.8L, Hematocrit 33L, Mean Corpuscular Volume 87, Mean Corpuscular Hemoglobin 29, Mean Corpuscular Hemoglobin Concent 33, Red Cell Distribution Width 12.7, Platelet Count 172, Mean Platelet Volume 10.6, Immature Granulocyte % (Auto) 0, Neutrophils (%) (Auto) 59, Lymphocytes (%) (Auto) 32, Monocytes (%) (Auto) 8, Eosinophils (%) (Auto) 1, Basophils (%) (Auto) 0, Neutrophils # (Auto) 3.6, Lymphocytes # (Auto) 2.0, Monocytes # (Auto) 0.5, Eosinophils # (Auto) 0.1, Basophils # (Auto) 0.0, Immature Granulocyte # (Auto) 0.0, Sodium Level 136, Potassium Level 4.0, Chloride Level 108H, Carbon Dioxide Level 23, Anion Gap 5, Blood Urea Nitrogen 8, Creatinine 0.67, Estimat Glomerular Filtration Rate 110, BUN/Creatinine Ratio 12, Glucose Level 106H, Calcium Level 8.0L, Corrected Calcium 8.7, Total Bilirubin 0.6, Aspartate Amino Transf (AST/SGOT) 18, Alanine Aminotransferase (ALT/SGPT) 22, Alkaline Phosphatase 62, Total Protein 5.0L, Albumin 3.1L Pending Labs Laboratory Tests 03/15/23 01:26: White Blood Count 7.0, Red Blood Count 4.93, Hemoglobin 14.4, Hematocrit 43, Mean Corpuscular Volume 86, Mean Corpuscular Hemoglobin 29, Mean Corpuscular Hemoglobin Concent 34, Red Cell Distribution Width 12.6, Platelet Count 251, Mean Platelet Volume 10.2, Immature Granulocyte % (Auto) 0, Neutrophils (%) (Auto) 46, Lymphocytes (%) (Auto) 45, Monocytes (%) (Auto) 6, Eosinophils (%) (Auto) 2, Basophils (%) (Auto) 1, Neutrophils # (Auto) 3.2, Lymphocytes # (Auto) 3.2, Monocytes # (Auto) 0.4, Eosinophils # (Auto) 0.2, Basophils # (Auto) 0.0, Immature Granulocyte # (Auto) 0.0, Erythrocyte Sedimentation Rate 5, Sodium Level 140, Potassium Level 3.6, Chloride Level 104, Carbon Dioxide Level 25, Anion Gap 11, Blood Urea Nitrogen 16, Creatinine 0.82, Estimat Glomerular Filtration Rate 90, BUN/Creatinine Ratio 20, Glucose Level 90, Calcium Level 9.9, Corrected Calcium , Total Bilirubin 0.6, Aspartate Amino Transf (AST/SGOT) 21, Alanine Aminotransferase (ALT/SGPT) 29, Alkaline Phosphatase 82, C-Reactive Protein High Sensitivity 0.02, Total Protein 7.6, Albumin 4.6, Amylase Level 72, Lipase 24, Serum Test, Qualitative NEGATIVE 03/15/23 02:26: Urine Color YELLOW, Urine Clarity CLEAR, Urine pH 7.0, Urine Specific [place] 1.010, Urine Protein NEGATIVE, Urine Glucose (UA) NEGATIVE, Urine Ketones NEGATIVE, Urine Nitrite NEGATIVE, Urine Bilirubin NEGATIVE, Urine Urobilinogen 0.2, Urine Leukocyte Esterase NEGATIVE, Urine RBC (Auto) NEGATIVE, Urine RBC NONE, Urine WBC NONE, Urine Crystals NONE, Urine Bacteria NEGATIVE, Urine Casts NONE, Urine Mucus NEGATIVE, Urine Culture Indicated NO 03/15/23 05:50: White Blood Count 8.1, Red Blood Count 4.28, Hemoglobin 12.5, Hematocrit 37, Mean Corpuscular Volume 86, Mean Corpuscular Hemoglobin 29, Mean Corpuscular Hemoglobin Concent 34, Red Cell Distribution Width 12.5, Platelet Count 196, M [place] Platelet Volume 10.4, Immature Granulocyte % (Auto) 0, Neutrophils (%) (Auto) 66, Lymphocytes (%) (Auto) 27, Monocytes (%) (Auto) 6, Eosinophils (%) (Auto) 1, Basophils (%) (Auto) 0, Neutrophils # (Auto) 5.3, Lymphocytes # (Auto) 2.1, Monocytes # (Auto) 0.5, Eosinophils # (Auto) 0.1, Basophils # (Auto) 0.0, Immature Granulocyte # (Auto) 0.0, Sodium Level 138, Potassium Level 3.7, Chloride Level 105, Carbon Dioxide Level 26, Anion Gap 7, Blood Urea Nitrogen 14, Creatinine 0.76, Estimat Glomerular Filtration Rate 99, BUN/Creatinine Ratio 18, Glucose Level 84, Calcium Level 8.8, Corrected Calcium 8.9, Total Bilirubin 0.6, Aspartate Amino Transf (AST/SGOT) 17, Alanine Aminotransferase (ALT/SGPT) 23, Alkaline Phosphatase 70, Total Protein 6.3, Albumin 3.9 03/16/23 05:15: White Blood Count 6.2, Red Blood Count 3.75, Hemoglobin 10.8, Hematocrit 33, Mean Corpuscular Volume 87, Mean Corpuscular Hemoglobin 29, Mean Corpuscular Hemoglobin Concent 33, Red Cell Distribution Width 12.7, Platelet Count 172, Mean Platelet Volume 10.6, Immature Granulocyte % (Auto) 0, Neutrophils (%) (Auto) 59, Lymphocytes (%) (Auto) 32, Monocytes (%) (Auto) 8, Eosinophils (%) (Auto) 1, Basophils (%) (Auto) 0, Neutrophils # (Auto) 3.6, Lymphocytes # (Auto) 2.0, Monocytes # (Auto) 0.5, Eosinophils # (Auto) 0.1, Basophils # (Auto) 0.0, Immature Granulocyte # (Auto) 0.0, Sodium Level 136, Potassium Level 4.0, Chloride Level 108, Carbon Dioxide Level 23, Anion Gap 5, Blood Urea Nitrogen 8, Creatinine 0.67, Estimat Glomerular Filtration Rate 110, BUN/Creatinine Ratio 12, Glucose Level 106, Calcium Level 8.0, Corrected Calcium 8.7, Total Bilirubin 0.6, Aspartate Amino Transf (AST/SGOT) 18, Alanine Aminotransferase (ALT/SGPT) 22, Alkaline Phosphatase 62, Total Protein 5.0, Albumin 3.1 Discharge Home Medications: Active Scripts Active Reported Multivitamin 1 Each Tablet 1 Each PO DAILY Magnesium (Magnesium Oxide) 400 Mg Magnesium Tablet 400 Mg PO DAILY Vitamin D3 (Cholecalciferol (Vitamin D3)) 50 Mcg (2000 Unit) Tablet 50 Mcg PO DAILY Trazodone HCl 50 Mg Tablet 50 Mg PO HS PRN Nifedipine ER (Nifedipine) 60 Mg Tab.er.24 60 Mg PO DAILY cycloSPORINE 0.05 % Droperette 1 Drop OU BID Bupropion HCl 100 Mg Tablet 200 Mg PO DAILY TAKES 2 (100MG) TABS Instructions to patient/family Please see electronic discharge instructions given to patient. LINUS COLINDRES DO Mar 16, 2023 12:35
[2023-03-16] MEDS ORDERED: ENOXAPARIN 40 MG/0.4 ML (LOVENOX) SYR SC SCH (13:00)
[2023-03-16 15:33] VITALS: BP 149/83
[2023-03-16 16:34] VITALS: BP 149/83
[2023-03-16] MEDS ORDERED: CYCLOSPORINE OU SCH (21:00)
[2023-03-16] MEDS ORDERED: ARTIFICAL TEARS Ophth solution 0.4 ML UNIT DOSE OU SCH (21:00)
--- NOTE | 2023-03-17 05:13 | ED Abdominal Pain ---
General Chief Complaint: Abdominal/GI Problems Stated Complaint: SMALL BOWEL OBSTRUCTION Nursing Triage Note: PT AMB TO RM 6 W C/O DULL/CONSTANT RLQ PAIN AND NAUSEA SX 1600 YESTERDAY. PT A&OX4. Sepsis Screen: No Definite Risk Source of Information: Patient History of Present Illness Date Seen by Provider: Mar 15, 2023 Time Seen by Provider: 01:20 Initial Comments PT ARRIVES VIA POV FROM HOME C/O RLQ AND MID ABDOMINAL PAIN SINCE AROUND 1600 TODAY PAIN IS A CONSTANT DULL PAIN AND THEN HAS WAVES OF SEVERE PAIN PAIN IS WORSE WITH WALKING AND POSITION CHANGES + NAUSEA, NO VOMITING. HAD SMALL BM EARLIER TODAY NO FEVER NO URINARY SYMPTOMS FELT FINE ALL DAY UNTIL 1600 SHE HAS NOT TAKEN ANYTHING FOR PAIN LMP: 2019--HAS IUD IN PLACE PT HAS HAD STEPHEN-EN-Y GASTRIC BYPASS, CHOLECYSTECTOMY, OVARIAN CYST REMOVAL, PCP: JESSICA BEY Allergies and Home Medications Allergies Coded Allergies: Penicillins (Verified Allergy, Unknown, 06/07/22) TOLD CHILD NOT TO TAKE IT, BUT DOES NO KNOW REACTION. HAS TAKEN AUGMENTIN IN PAST Patient Home Medication List Home Medication List Reviewed: Yes Bupropion HCl (Bupropion HCl) 100 Mg Tablet, 200 MG PO DAILY, (Reported) Entered as Reported by: KT DODSON on 03/15/231307 Last Action: Continued Cholecalciferol (Vitamin D3) (Vitamin D3) 50 Mcg (2000 Unit) Tablet, 50 MCG PO DAILY, (Reported) Entered as Reported by: KT DODSON on 03/15/231307 Last Action: Converted Magnesium Oxide (Magnesium) 400 Mg Magnesium Tablet, 400 MG PO DAILY, (Reported) Entered as Reported by: KT DODSON on 03/15/231307 Last Action: Converted Multivitamin (Multivitamin) 1 Each Tablet, 1 EACH PO DAILY, (Reported) Entered as Reported by: KT DODSON on 03/15/231307 Last Action: Converted Nifedipine (Nifedipine ER) 60 Mg Tab.er.24, 60 MG PO DAILY, (Reported) Entered as Reported by: KT DODSON on 03/15/231307 Last Action: Converted Trazodone HCl (Trazodone HCl) 50 Mg Tablet, 50 MG PO HS PRN for SLEEP, (Reported) Entered as Reported by: TK DODSON on 03/15/231307 Last Action: Continued cycloSPORINE (cycloSPORINE) 0.05 % Droperette, 1 DROP OU BID, (Reported) Entered as Reported by: KT DODSON on 03/15/231307 Last Action: Converted Review of Systems Review of Systems Constitutional: see HPI Respiratory: No Symptoms Reported Cardiovascular: No Symptoms Reported Gastrointestinal: See HPI, Abdominal Pain, Nausea, Poor Appetite; Denies Vomiting Genitourinary: No Symptoms Reported Musculoskeletal: no symptoms reported; No back pain Skin: no symptoms reported; No change in color Psychiatric/Neurological: No Symptoms Reported Endocrine: No Symptoms Reported Hematologic/Lymphatic: No Symptoms Reported Past [id number] Hx Patient Social History Tobacco Use?: No Smoking Status: Never a Smoker Smokeless Tobacco Frequency: Never a User Use of E-Cig and/or Vaping dev: No Use of E-Cig and/or Vaping Ricardo: Never a User Substance use?: No Alcohol Use?: No Pt feels they are or have been: No Immunizations Up To Date Influenza Vaccine Up-to-Date: Yes; Up-to-Date Past Medical History Surgeries: Yes (STEPHEN-EN-Y BYPASS 2015; OVARIAN CYST REMOVAL) Abdominal, Section, Gallbladder Respiratory: No Cardiac: No Neurological: No Reproductive Disorders: Yes Female Reproductive Disorders: Ovarian Cyst Genitourinary: No Gastrointestinal: Yes (S/P GASTRIC BYPASS AND CHOLECYSTECTOMY) Musculoskeletal: No Endocrine: Yes (OBESITY--GASTRIC BYPASS 2015, HAS LOST 145#) HEENT: No Cancer: No Psychosocial: Yes Depression Integumentary: No Blood Disorders: No Family Medical History No Pertinent Family Hx Physical Exam Vital Signs Vital Signs - First Documented 03/15/23 01:20 Temp 36.3 Pulse 87 Resp 18 B/P (MAP) 147/95 (112) Pulse Ox 99 O2 Delivery Room Air Capillary Refill : Less Than 3 Seconds Height/Weight/BMI Height: '" Weight: lbs. oz. kg; 24.88 BMI Method: General Appearance: WD/WN, other (WALKS AND MOVES SLOWLY AND BENT AT WAIST. ) HEENT: No scleral icterus (R), No scleral icterus (L) Respiratory: normal breath sounds, no respiratory distress, no accessory muscle use Cardiovascular: regular rate, rhythm, no murmur Gastrointestinal: abnormal bowel sounds (DECREASED); No distended; guarding, rebound, tenderness (RLQ AND EPIGASTRIC AREA TENDERNESS) Extremities: normal inspection, normal capillary refill Back: no CVA tenderness Neurologic/Psychiatric: sports medicine specialist II-XII nml as tested, no motor/sensory deficits, alert, normal mood/affect, oriented x 3 Skin: normal color, warm/dry Progress/Results/Core Measures Results/Orders Lab Results Laboratory Tests Test 03/15/23 01:26 03/15/23 02:26 Range/Units White Blood Count 7.0 4.3-11.0 10^3/uL Red Blood Count 4.93 3.80-5.11 10^6/uL Hemoglobin 14.4 11.5-16.0 g/dL Hematocrit 43 35-52 % Mean Corpuscular Volume 86 80-99 fL Mean Corpuscular Hemoglobin 29 25-34 pg Mean Corpuscular Hemoglobin Concent 34 32-36 g/dL Red Cell Distribution Width 12.6 10.0-14.5 % Platelet Count 251 130-400 10^3/uL Mean Platelet Volume 10.2 9.0-12.2 fL Immature Granulocyte % (Auto) 0 % Neutrophils (%) (Auto) 46 42-75 % Lymphocytes (%) (Auto) 45 H 12-44 % Monocytes (%) (Auto) 6 0-12 % Eosinophils (%) (Auto) 2 0-10 % Basophils (%) (Auto) 1 0-10 % Neutrophils # (Auto) 3.2 1.8-7.8 10^3/uL Lymphocytes # (Auto) 3.2 1.0-4.0 10^3/uL Monocytes # (Auto) 0.4 0.0-1.0 10^3/uL Eosinophils # (Auto) 0.2 0.0-0.3 10^3/uL Basophils # (Auto) 0.0 0.0-0.1 10^3/uL Immature Granulocyte # (Auto) 0.0 0.0-0.1 10^3/uL Erythrocyte Sedimentation Rate 5 0-20 MM/HR Sodium Level 140 135-145 MMOL/L Potassium Level 3.6 3.6-5.0 MMOL/L Chloride Level 104 98-107 MMOL/L Carbon Dioxide Level 25 21-32 MMOL/L Anion Gap 11 5-14 MMOL/L Blood Urea Nitrogen 16 7-18 MG/DL Creatinine 0.82 0.60-1.30 MG/DL Estimat Glomerular Filtration Rate 90 BUN/Creatinine Ratio 20 Glucose Level 90 70-105 MG/DL Calcium Level 9.9 8.5-10.1 MG/DL Corrected Calcium 8.5-10.1 MG/DL Total Bilirubin 0.6 0.1-1.0 MG/DL Aspartate Amino Transf (AST/SGOT) 21 5-34 U/L Alanine Aminotransferase (ALT/SGPT) 29 0-55 U/L Alkaline Phosphatase 82 40-136 U/L C-Reactive Protein High Sensitivity 0.02 0.00-0.50 MG/DL Total Protein 7.6 6.4-8.2 GM/DL Albumin 4.6 H 3.2-4.5 GM/DL Amylase Level 72 25-125 U/L Lipase 24 8-78 U/L Serum Test, Qualitative NEGATIVE NEGATIVE Urine Color YELLOW Urine Clarity CLEAR Urine pH 7.0 5-9 Urine Specific [place] 1.010 L 1.016-1.022 Urine Protein NEGATIVE NEGATIVE Urine Glucose (UA) NEGATIVE NEGATIVE Urine Ketones NEGATIVE NEGATIVE Urine Nitrite NEGATIVE NEGATIVE Urine Bilirubin NEGATIVE NEGATIVE Urine Urobilinogen 0.2 < = 1.0 MG/DL Urine Leukocyte Esterase NEGATIVE NEGATIVE Urine RBC (Auto) NEGATIVE NEGATIVE Urine RBC NONE /HPF Urine WBC NONE /HPF Urine Crystals NONE /LPF Urine Bacteria NEGATIVE /HPF Urine Casts NONE /LPF Urine Mucus NEGATIVE /LPF Urine Culture Indicated NO My Orders Orders - VERONICA COHN DO Ed Iv/Invasive Line Start (03/15/23 01:36) Monitor-Rhythm Ecg Trace Only (03/15/23 01:36) Amylase (03/15/23 01:36) Cbc With Automated Diff (03/15/23 01:36) Comprehensive Metabolic Panel (03/15/23 01:36) Hs C Reactive Protein (03/15/23 01:36) Lipase (03/15/23 01:36) Ua Culture If Indicated (03/15/23 01:36) Erythrocyte Sedimentation Rate (03/15/23 01:36) Hcg,Qualitative Serum (03/15/23 01:36) Ed Iv/Invasive Line Start (03/15/23 02:01) Lactated Ringers (Lr 1000 Ml Iv Solution (03/15/23 02:15) Ketorolac Injection (Toradol Injection) (03/15/23 02:01) Ondansetron Injection (Zofran Injectio (03/15/23 02:15) Ct Abd/Pelv W (Appendicitis) (03/15/23 02:01) Iohexol Injection (Omnipaque 350 Mg/Ml 1 (03/15/23 02:45) Received Contrast (Hold Metformin- Contr (03/15/23 02:45) Sodium Chloride Flush (Catheter Flush Sy (03/15/23 02:45) Ns (Ivpb) 100 Ml (Sodium Chloride 0.9% 1 (03/15/23 02:45) Fentanyl Inj (Sublimaze Injection) (03/15/23 03:17) Vital Signs/I&O 03/15/23 01:20 Temp 36.3 Pulse 87 Resp 18 B/P (MAP) 147/95 (112) Pulse Ox 99 O2 Delivery Room Air Blood Pressure Mean: 105 Progress Progress Note : Progress Note VITALS ON ARRIVAL: TEMP 36.3, HR 87, RR 18, BP 147/95 GIVEN: -IV FLUIDS -ZOFRAN -FENTANYL NAUSEA AND PAIN IMPROVED WITH THE ABOVE VITALS REMAIN STABLE NO DETERIORATION IN PT'S CONDITION DURING ER STAY PERTINENT LABS: -CBC NORMAL WITH WBC 7.0 -CMP NORMAL, AMYLASE/LIPASE NORMAL -UA NORMAL DISCUSSED TEST RESULTS, NEED FOR ADMIT AND PT IS AGREEABLE TO PLAN Diagnostic Imaging Comments CT ABDOMEN/PELVIS--PER [facility] VIA FAX AT [id number] -DILATED SMALL BOWEL LOOPS UP TO 4.6 CM IN DIAMETER. DISTAL SMALL BOWEL IS DECOMPRESSED, SUGGESTING HIGH GRADE MID SMALL BOWEL OBSTRUCTION. -NO PNEUMOPERITONEUM OR ABSCESS IS SEEN -POST OP CHANGES FROM PREVIOUS GASTRIC BYPASS Reviewed: Reviewed by Ar Departure Communication (Admissions) [id number]--SPOKE WITH DR. AMADO, SURGEON, ACCEPTS PT FOR ADMIT Impression Primary Impression: Small bowel obstruction Additional Impression: Hx of gastric bypass Disposition: ADMITTED INPATIENT Condition: Stable Admissions Decision to Admit Reason: Admit from ER (General) Decision to Admit/Date: Mar 15, 2023 Time/Decision to Admit Time: 03:00 Departure-Patient Inst. Referrals: NO,LOCAL PHYSICIAN (PCP) Primary Care Physician Patient Instructions: Small Bowel Obstruction (DC) VERONICA COHN DO Mar 17, 2023 05:13
[2023-03-17] MEDS ORDERED: VITAMIN D3 25 MCG (1,000 UNITS) TABLET PO SCH (09:00)
[2023-03-17] MEDS ORDERED: buPROPion 100 MG TABLET PO SCH (09:00)
[2023-03-17] MEDS ORDERED: MAGNESIUM OXIDE (MAG-OX)400 MG TAB PO SCH (09:00)
[2023-03-17] MEDS ORDERED: MULTIVIT W/MINERALS TAB (THERAGRAN M) PO SCH (09:00)
[2023-03-17] MEDS ORDERED: NIFEdipine ER 30 MG (PROCARDIA XL) TAB PO SCH (09:00)
== END 2023-03-16 16:45 | disposition home or self-care (01) | DRG 390 ==
LOC: EDUNIT# 01:11 → ER 01:14 → 4TH 04:40 → ER 04:50 → 4TH 10:39
PROVIDERS: ADMIT Surgery; ATTEND Surgery
PROC: 0D9670Z Drainage of Stomach with Drainage Device, Via Natural or Artificial Opening (ICD-10-PCS; principal; 2023-03-15)
DX: K56.609 Unspecified intestinal obstruction, unspecified as to partial versus complete obstruction (principal); Z98.84 Bariatric surgery status; F32.A Depression, unspecified; Z88.0 Allergy status to penicillin; Z79.899 Other long term (current) drug therapy
CPT/HCPCS: 36415; 71045; 74177; 74250; 80053; 81000; 82150; 83690; 84703; 85025; 85652; 86141; 93041